=== PATIENT | male | born 1965 ===

== ENCOUNTER → 2020-02-01 | Outpatient (CLI) | payer OTHER | END | disposition home or self-care (01) | LOC: TOM 06:58 | PROVIDERS: ATTEND Internal Medicine | DX: K57.90 Diverticulosis of intestine, part unspecified, without perforation or abscess without bleeding (principal); K76.89 Other specified diseases of liver; D64.89 Other specified anemias; K56.50 Intestinal adhesions [bands], unspecified as to partial versus complete obstruction ==